=== PATIENT | female | born 1970 | race Caucasian/White ===

== ENCOUNTER → 2024-06-17 08:30 | Outpatient (REF) | payer BC, SELFPAY | LOC: RAD 08:30 | PROVIDERS: ATTENDING PHYSICIAN Physician Assistant Medical | DX: R10.13 Epigastric pain (principal) | CPT/HCPCS: 74246 ==

== ENCOUNTER → 2024-06-22 07:10 | Outpatient (REF) | payer BC, SELFPAY | LOC: HWRAD 07:10 | PROVIDERS: ATTENDING PHYSICIAN Physician Assistant Medical | DX: R10.13 Epigastric pain (principal) | CPT/HCPCS: 76700 ==